=== PATIENT | male | born 1950 | race Two or more races ===

== ENCOUNTER 2020-01-01 07:19 | Emergency (ER) | payer OTHER ==
[~2020-01-01] VITALS: Ht 172.7 cm; Wt 74.8 kg
[2020-01-01 07:56] VITALS: BP 199/99
--- NOTE | 2020-01-01 08:20 | NUR ---
RETOOK BP 176/97
== END 2020-01-01 08:56 | disposition home or self-care (01) ==
LOC: ER 07:19
DX: R09.81 Nasal congestion (principal); M54.6 Pain in thoracic spine; K21.9 Gastro-esophageal reflux disease without esophagitis; I10 Essential (primary) hypertension
CPT/HCPCS: 71046